=== PATIENT | male | born 1975 | race Caucasian/White ===

== ENCOUNTER 2020-05-05 10:51 | Emergency (ER) | payer MEDICAID ==
[2020-05-05 11:10] VITALS: BP 119/101; PULSE 100; O2SAT 98
[2020-05-05] MEDS ORDERED: TORAdol 30 mg Injection IM ONE (11:21)
[2020-05-05] MEDS ORDERED: TORAdol 30 mg Injection ONE (11:22)
--- NOTE | 2020-05-05 11:27 | ERPHSYRPT ---
- History of Present Illness Time Seen by Provider: 05/05/20 11:00 Source: patient Exam Limitations: no limitations Patient Subjective Stated Complaint: R hand pain Triage Nursing Assessment: pt to ED c/o R hand pain r/t previously found fx. was seen in another hospital and dx and given norco for pain. f/u with surgeon was postponed per the doc and rescheduled for 05/07/20. states he is out of pain meds and is "eating way too much ibuprofen and tylenol than I should be" with little to no pain relief. rates 7/10 sharp burning pain now. placed in splint by previous facility. Physician History: Patient is a 44-year-old male presents to our ED for [place] refill. Patient states he fractured his right hand metacarpal 1 week ago. Patient was given a prescription for [place]. Patient ran out of his [place]. Patient states his surgeon canceled his appointments. Patient has been taken Tylenol and ibuprofen for pain control. No interval trauma. Patient's pain described as an ache/occasional burning sensation that is worse with movement. Patient states the swelling has decreased significantly. No cyanosis or numbness of the fingers or hand. Symptoms are mild to moderate in intensity. Palpation and mov ement worsens symptoms. Patient currently has a follow-up appointment scheduled with a surgeon in 2 days. Patient voices no other complaints concerns at this time. Timing/Duration: week(s) Severity: mild Modifying Factors: Improves With: movement Associated Symptoms: denies symptoms Allergies/Adverse Reactions: No Known Drug Allergies Allergy (Unverified 05/05/20 11:10) Hx Tetanus, Diphtheria Vaccination/Date Given: Yes Hx Influenza Vaccination/Date Given: No Hx Pneumococcal Vaccination/Date Given: No Immunizations Up to Date: Yes Travel Risk - International Travel Have you traveled outside of the country in past 3 weeks: No - Coronavirus Screening Are you exhibiting any of the following symptoms?: No Close contact with a COVID-19 positive Pt in past 14-21 Days: No - Review of Systems Constitutional: No Symptoms, No Fever, No Chills Eyes: No Symptoms Ears, Nose, & Throat: No Symptoms Respiratory: No Symptoms, No Cough, No Dyspnea Cardiac: No Symptoms, No Chest Pain, No Edema, No Syncope Abdominal/Gastrointestinal: No Symptoms, No Abdominal Pain, No Nausea, No Vomiting, No Diarrhea Genitourinary Symptoms: No Symptoms, No Dysuria Musculoskeletal: No Symptoms, No Back Pain, No Neck Pain Skin: No Symptoms, No Rash Neurological: No Symptoms, No Dizziness, No Focal Weakness, No Sensory Changes Psychological: No Symptoms Endocrine: No Symptoms Hematologic/Lymphatic: No Symptoms Immunological/Allergic: No Symptoms All Other Systems: Reviewed and Negative - Past Medical History Pertinent Past Medical History: No - Past Surgical History Past Surgical History: Yes - Social History Smoking Status: Current every day smoker How long have you smoked: years Exposure to second hand smoke: No Drug Use: none Patient Lives Alone: No - Nursing Vital Signs Nursing Vital Signs: Initial Vital Signs Temperature 98.7 F 05/05/20 10:56 Pulse Rate 100 H 05/05/20 10:56 Respiratory Rate 18 05/05/20 10:56 Blood Pressure 119/101 05/05/20 10:56 O2 Sat by Pulse Oximetry 98 05/05/20 10:56 Pain Scale Pain Intensity 7 - Physical Exam General Appearance: no apparent distress, alert Eye Exam: PERRL/EOMI, eyes nml inspection Neck Exam: normal inspection, full range of motion, thyromegaly Respiratory Exam: normal breath sounds, lungs clear, airway intact, No respiratory distress, No accessory muscle use Cardiovascular Exam: regular rate/rhythm, normal peripheral pulses, capillary refill <2 sec, No edema Gastrointestinal/Abdomen Exam: soft, tenderness, guarding Back Exam: normal inspection, normal range of motion, No CVA tenderness, No vertebral tenderness Extremity Exam: normal inspection, normal range of motion, pelvis stable Neurologic Exam: alert, oriented x 3, cooperative, normal mood/affect, nml cerebellar function, nml station & gait, sensation nml, No motor deficits Skin Exam: normal color, warm, dry, No rash Lymphatic Exam: No adenopathy SpO2 Interpretation: normal SpO2: 98 O2 Delivery: Room Air - Course Nursing assessment & vital signs reviewed: Yes - Progress Progress: improved Progress Note: 05/05/20 11:30 I explained the patient that I cannot refill his [place] prescription. I offered him Toradol and he accepted. Patient understands that he cannot take ibuprofen along with Toradol. A prescription for Toradol was sent to patient's pharmacy. Patient will follow up with his orthopedic surgeon in 2 days for reevaluation. Patient declined removal of splint for inspection. Patient states that the swelling has gone down significantly. Patient voices no other complaints or concerns at this time. The involved extremity hand and digits are neurovascular intact distally. They are well perfused pink and warm. No cyanosis. Cap refill less than 2 seconds. Compartments are soft. 05/05/20 11:31 Counseled pt/family regarding: diagnosis, need for follow-up - Departure Departure Disposition: Home Clinical Impression: Medication refill Condition: Stable Critical Care Time: No Instructions: Hand Fracture (DC) Additional Instructions: Discharge/Care Plan JESUS CHANDLER was seen on 05/05/20 in the Emergency Room. The patient was counseled regarding Diagnosis,Lab results, Imaging studies, need for follow up and when to return to the Emergency Room. Prescriptions given: Discharge Note I have spoken with the patient and/or caregivers. I have explained the patient's condition, diagnosis and treatment plan based on the information available to me at this time. I have answered the patient's and/or caregiver's questions and addressed any concerns. The patient and/or caregivers have as good understanding of the patient's diagnosis, condition and treatment plan as can be expected at this point. The vital signs have been stable. The patient's condition is stable and appropriate for discharge from the emergency department. The patient will pursue further outpatient evaluation with the primary care physician or other designated or consulting physician as outlined in the discharge instructions. The patient and/or caregivers are agreeable to this plan of care and follow-up instructions have been explained in detail. The patient and/or caregivers have received these instruction. The patient/and or caregivers are aware that any significant change in condition or worsening of symptoms should prompt an immediate return to this or the closest emergency department or call 911. Prescriptions: Ketorolac Tromethamine [Toradol] 10 mg PO TID 5 Days #15 tablet
== END 2020-05-05 11:48 | disposition home or self-care (01) ==
LOC: ED 10:51
DX: M79.641 Pain in right hand (principal); Z76.0 Encounter for issue of repeat prescription
CPT/HCPCS: 96372; 99283; J1885